=== PATIENT | female | born 1945 | race African-American/Black ===

== ENCOUNTER 2021-08-23 00:51 | Day surgery (SDC) | payer MEDICARE, SELFPAY ==
[2021-08-19 14:29] VITALS: BMI 27.6
[2021-08-23 10:51] VITALS: BP 127/63; PULSE 63; RESP 18; TEMP 36.4; O2SAT 99
--- NOTE | 2021-08-23 10:55 | WPDGICN ---
Assessment and Plan Assessment and plan (1) Dysphagia: Code(s): R13.10 - Dysphagia, unspecified Status: Acute Assessment and Plan: Patient has difficulty swallowing suspicious for esophageal narrowing. Plan is to evaluate with EGD possibly for dilatation. Further recommendations will be given after endoscopy. (2) GERD (gastroesophageal reflux disease): Code(s): K21.9 - Gastro-esophageal reflux disease without esophagitis Status: Acute Assessment and Plan: Patient has regurgitation on bending over. Symptoms suspicious for acid reflux with symptoms predominantly after eating. Further recommendations will be given after endoscopy. GI Consult Note Consult date/time: 08/23/21 10:55 HPI: Estela Dodd is a 76 year old female Presents for EGD. Patient reports substernal chest discomfort with eating described as a fluttering, and or thumping. This has developed since July 23, 2021. She also has had increasing dysphagia and difficulty swallowing solid foods. She denies any specific heartburn. She was started on pantoprazole with some improvement of symptoms. She is referred today for EGD to further assess these new symptoms. Patient reports a past medical history as a young girl that she had stomach ulcers. She has a distant history of diverticulitis. Most recent bowel movements are normal. Colonoscopy 5 years ago was unremarkable. Family history is noncontributory. Review of Systems Review of Systems: All systems reviewed & are unremarkable except as noted in HPI and below PMFSH Social History Social History Smoking packs per day: 0.5 Smoking cigarettes per day: 10.0 Years smoked: 40 Smoking pack-years: 20.00 Smoking status: Former smoker Tobacco type: cigarettes Alcohol intake: never Substance use: never Substance use type: does not use Living arrangements: with family Spiritual care concerns: No Meds Home Medications and Allergies Home Medications Medication Instructions Recorded Confirmed Type amlodipine 10 mg PO DAILY 08/19/21 08/19/21 History aspirin [Adult Low Dose Aspirin] 81 mg PO DAILY 08/19/21 08/19/21 History atorvastatin 40 mg PO DAILY 08/19/21 08/19/21 History cyclobenzaprine 5 mg PO PRN 08/19/21 08/19/21 History losartan 100 mg PO DAILY 08/19/21 08/19/21 History metoprolol succinate 100 mg PO BID 08/19/21 08/19/21 History pantoprazole 40 mg PO DAILY 08/19/21 08/19/21 History prednisone 10 mg PO PRN PRN 08/19/21 08/19/21 History Allergies Allergy/AdvReac Type Severity Reaction Status Date / Time No Known Allergies Allergy Verified 08/23/21 10:49 Vital Signs Vital Signs - 24 hr 08/23/21 10:51 Temperature 97.6 F Pulse Rate 63 Respiratory Rate 18 Blood Pressure 127/63 Pulse Oximetry 99 Exam Narrative: Physical exam reveals patient to be alert. Vital signs stable. HEENT exam unremarkable. Patient is anicteric. Lungs are clear to auscultation and percussion. Heart is without murmur or extra sounds. Abdominal exam bowel sounds are present soft nontender with no organomegaly.
[2021-08-23] MEDS: LACTATED RINGERS 1,000 ML 150 ML IV CONT (11:05)
--- NOTE | 2021-08-23 11:23 | P.PNAN_ITS ---
Anes - Initial Pre Proc Eval Procedure: Operation Date: 08/23/21 11:30 Proposed Procedures p Esophagogastroduodenoscopy - David Roth MD Date/Time: 08/23/21 11:23 Surgeon: David Roth MD Pre Op Diagnosis: GERD Patient Data Age: 76 Gender: F Height: 1.61 m Weight: 73 kg Last Vital Signs Temp 97.6 F 08/23/21 10:51 Pulse 63 08/23/21 10:51 Resp 18 08/23/21 10:51 BP 127/63 08/23/21 10:51 Pulse Ox 99 08/23/21 10:51 Allergies Allergy/AdvReac Type Severity Reaction Status Date / Time No Known Allergies Allergy Verified 08/23/21 10:49 Home Medications Medication Instructions Recorded Confirmed Type amlodipine 10 mg PO DAILY 08/19/21 08/19/21 History aspirin [Adult Low Dose Aspirin] 81 mg PO DAILY 08/19/21 08/19/21 History atorvastatin 40 mg PO DAILY 08/19/21 08/19/21 History cyclobenzaprine 5 mg PO PRN 08/19/21 08/19/21 History losartan 100 mg PO DAILY 08/19/21 08/19/21 History metoprolol succinate 100 mg PO BID 08/19/21 08/19/21 History pantoprazole 40 mg PO DAILY 08/19/21 08/19/21 History prednisone 10 mg PO PRN PRN 08/19/21 08/19/21 History Patient hx anesthesia problems: none Family hx anesthesia problems: none Results Review: All pre-operative results and documents have been reviewed as part of the pre-operative evaluation. [facility] Past Medical History Medical History (Updated 08/23/21 @ 11:16 by Steven Rios MD) Hyperlipidemia Hypertension Social History Social History Smoking packs per day: 0.5 Smoking cigarettes per day: 10.0 Years smoked: 40 Smoking pack-years: 20.00 Smoking status: Former smoker Tobacco type: cigarettes Alcohol intake: never Substance use: never Substance use type: does not use Living arrangements: with family Spiritual care concerns: No Anes - Eval Final PreProcedure Day of Procedure 08/23/21 11:23 Patient weight: overweight Heart: regular rate and rhythm Lungs: clear to auscultation Airway: Mallampati scale class II (bottom front teeth loose; explained may come out during procedure) Neurological: alert and oriented Last oral intake: >/= 8 hours ASA classification: II Emergent: no Anesthetic plan: proceed Anesthesia type and monitoring: general GIVS and standard monitoring Results Review: All pre-operative results and documents have been reviewed as part of the pre-operative evaluation. Informed Consent: The patient's anesthetic plan and its attendant risks and benefits were discussed with the patient/family/POA. Questions were solicited and answers provided to the satisfaction of the patient/family/POA.
[2021-08-23] MEDS: BENZOCAINE (*SP) 60 ML SPRAY CAN (HURRICAINE) 1 SPRAY MUCOUS MEM (11:31)
[2021-08-23 11:38] VITALS: BP 124/75; PULSE 58; RESP 21; O2SAT 96
[2021-08-23 11:48] VITALS: BP 126/76; PULSE 60; RESP 21; O2SAT 97
[2021-08-23 11:58] VITALS: BP 119/73; PULSE 60; RESP 15; O2SAT 99
== END 2021-08-23 12:10 | disposition home or self-care (01) ==
PROVIDERS: PCP Family Medicine; Visit Provider Internal Medicine Gastroenterology
PROC: 0DJ08ZZ Inspection of Upper Intestinal Tract, Via Natural or Artificial Opening Endoscopic (ICD-10-PCS; CPT 43235; principal; 2021-08-23 11:30)
DX: Q39.4 Esophageal web (principal); K21.9 Gastro-esophageal reflux disease without esophagitis; I10 Essential (primary) hypertension; E78.5 Hyperlipidemia, unspecified; Z87.891 Personal history of nicotine dependence; Z79.82 Long term (current) use of aspirin
CPT/HCPCS: 43450; 43235; J2704; J7120

== ENCOUNTER 2023-03-23 01:12 | Day surgery (SDC) | payer MEDICARE, SELFPAY ==
[2023-03-08 11:04] VITALS: BMI 27.7
[2023-03-23 09:54] VITALS: BP 127/77; PULSE 67; RESP 18; TEMP 36.4; O2SAT 97
[2023-03-23] MEDS: LACTATED RINGERS 1,000 ML 150 ML IV CONT (09:58)
--- NOTE | 2023-03-23 10:18 | WPDANESEPPF ---
Anes - Initial Pre Proc Eval Procedure: Operation Date: 03/23/23 10:45 Proposed Procedures p Colonoscopy - David Roth MD Date/Time: 03/23/23 10:18 Surgeon: David Roth MD Pre Op Diagnosis: other fecal abnormalities Patient Data Age: 77 Gender: F Height: 1.6 m Weight: 73.4 kg Last Vital Signs Temp 97.5 F L 03/23/23 09:54 Pulse 67 03/23/23 09:54 Resp 18 03/23/23 09:54 BP 127/77 03/23/23 09:54 Pulse Ox 97 03/23/23 09:54 O2 Del Method Room Air 03/23/23 09:54 Allergies Allergy/AdvReac Type Severity Reaction Status Date / Time No Known Allergies Allergy Verified 03/23/23 09:53 Home Medications Medication Instructions Recorded Confirmed Type amlodipine 10 mg tablet 10 mg PO HS 08/19/21 03/23/23 History atorvastatin 40 mg tablet 40 mg PO HS 08/19/21 03/23/23 History losartan 100 mg tablet 100 mg PO QPM 08/19/21 03/23/23 History metoprolol succinate 100 mg 100 mg PO BID 08/19/21 03/23/23 History tablet,extended release 24 hr pantoprazole 40 mg tablet,delayed 40 mg PO DAILY 08/19/21 03/23/23 History release B-complex with vitamin C 1 cap PO DAILY 05/03/22 03/23/23 History ascorbic acid (vitamin C) 500 mg 500 mg PO DAILY 05/03/22 03/23/23 History capsule,extended release aspirin 81 mg tablet 81 mg PO DAILY 05/03/22 03/23/23 History cholecalciferol (vitamin D3) 50 50 mcg PO DAILY 05/03/22 03/23/23 History mcg (2,000 unit) tablet (Vitamin D3) calcium carbonate 300 mg (750 mg) 300 mg PO BID 03/08/23 03/23/23 History chewable tablet (Tums Extra Strength Smoothies) celecoxib 200 mg capsule 200 mg PO DAILY PRN ARTHRITIS 03/08/23 03/23/23 History FLAREUP Patient hx anesthesia problems: none Family hx anesthesia problems: none Results Review: All pre-operative results and documents have been reviewed as part of the pre-operative evaluation. [facility] Past Medical History Medical History Hyperlipidemia Hypertension Social History Social History Smoking packs per day: 0.5 Smoking cigarettes per day: 10.0 Years smoked: 40 Smoking pack-years: 20.00 Smoking status: Former smoker Tobacco type: cigarettes Alcohol intake: current Substance use: never Substance use type: does not use Living arrangements: with family Spiritual care concerns: No Anes - Eval Final PreProcedure Day of Procedure 03/23/23 10:18 Patient weight: normal Heart: regular rate and rhythm Lungs: clear to auscultation Airway: Mallampati scale class II Neurological: alert and oriented Last oral intake: >/= 8 hours ASA classification: II Emergent: no Anesthetic plan: proceed Anesthesia type and monitoring: general GIVS and standard monitoring Results Review: All pre-operative results and documents have been reviewed as part of the pre-operative evaluation. Informed Consent: The patient's anesthetic plan and its attendant risks and benefits were discussed with the patient/family/POA. Questions were solicited and answers provided to the satisfaction of the patient/family/POA.
--- NOTE | 2023-03-23 10:43 | P.HP_ITS ---
History of Present Illness History of Present Illness Consent: Risks, benefits, and alternatives have been discussed and questions answered. Patient agrees to proceed with procedure. Chief complaint: positive cologuard test Narrative: Estela Dodd is a 77 year old female presents for screening colonoscopy. Patient's current weight appetite and bowel movements are normal. Patient denies abdominal pain. She has had no bleeding. Family history noncontri butory. Review of Systems Review of Systems: Review of systems noncontributory. [facility] Past Medical History Medical History Hyperlipidemia Hypertension Social History Social History Smoking packs per day: 0.5 Smoking cigarettes per day: 10.0 Years smoked: 40 Smoking pack-years: 20.00 Smoking status: Former smoker Tobacco type: cigarettes Alcohol intake: current Substance use: never Substance use type: does not use Living arrangements: with family Spiritual care concerns: No Meds Home Medications and Allergies Home Medications Medication Instructions Recorded Confirmed Type amlodipine 10 mg tablet 10 mg PO HS 08/19/21 03/23/23 History atorvastatin 40 mg tablet 40 mg PO HS 08/19/21 03/23/23 History losartan 100 mg tablet 100 mg PO QPM 08/19/21 03/23/23 History metoprolol succinate 100 mg 100 mg PO BID 08/19/21 03/23/23 History tablet,extended release 24 hr pantoprazole 40 mg tablet,delayed 40 mg PO DAILY 08/19/21 03/23/23 History release B-complex with vitamin C 1 cap PO DAILY 05/03/22 03/23/23 History ascorbic acid (vitamin C) 500 mg 500 mg PO DAILY 05/03/22 03/23/23 History capsule,extended release aspirin 81 mg tablet 81 mg PO DAILY 05/03/22 03/23/23 History cholecalciferol (vitamin D3) 50 50 mcg PO DAILY 05/03/22 03/23/23 History mcg (2,000 unit) tablet (Vitamin D3) calcium carbonate 300 mg (750 mg) 300 mg PO BID 03/08/23 03/23/23 History chewable tablet (Tums Extra Strength Smoothies) celecoxib 200 mg capsule 200 mg PO DAILY PRN ARTHRITIS 03/08/23 03/23/23 History FLAREUP Allergies Allergy/AdvReac Type Severity Reaction Status Date / Time No Known Allergies Allergy Verified 03/23/23 09:53 Vital Signs Vital Signs - 24 hr 03/23/23 09:54 Temperature 97.5 F L Pulse Rate 67 Respiratory Rate 18 Blood Pressure 127/77 Pulse Oximetry 97 Oxygen Delivery Room Air Exam Narrative: Physical exam reveals patient to be alert. Vital signs stable. HEENT exam is unremarkable. Patient is anicteric. Lungs are clear to auscultation and percussion. Heart is without murmur or extra sounds. Abdomen bowel sounds are present soft nontender with no organomegaly. Digital external rectal exam is normal. Assessment and Plan Assessment and plan (1) Positive colorectal cancer screening using Cologuard test: Code(s): R19.5 - Other fecal abnormalities Status: Acute Assessment and Plan: Patient had positive Cologuard test. Colonoscopy will be performed to evaluate.
[2023-03-23 11:50] VITALS: BP 112/68; PULSE 56; RESP 18; O2SAT 98
[2023-03-23 12:00] VITALS: BP 119/71; PULSE 58; RESP 17; O2SAT 100
[2023-03-23 12:10] VITALS: BP 101/51; PULSE 61; RESP 17; O2SAT 100
== END 2023-03-23 12:15 | disposition home or self-care (01) ==
PROVIDERS: PCP Family Medicine; Visit Provider Internal Medicine Gastroenterology
PROC: 0DJD8ZZ Inspection of Lower Intestinal Tract, Via Natural or Artificial Opening Endoscopic (ICD-10-PCS; CPT 45378; principal; 2023-03-23 10:45)
DX: R19.5 Other fecal abnormalities (principal); K57.30 Diverticulosis of large intestine without perforation or abscess without bleeding; K64.8 Other hemorrhoids; I10 Essential (primary) hypertension; E78.5 Hyperlipidemia, unspecified; Z87.891 Personal history of nicotine dependence; Z79.82 Long term (current) use of aspirin
CPT/HCPCS: 45378; J2704; J7120